=== PATIENT | male | born 1985 | race Caucasian/White ===

== ENCOUNTER 2018-10-31 21:23 | Emergency (ER) | payer SELFPAY ==
[~2018-10-31] VITALS: Ht 170.2 cm; Wt 94.3 kg
[2018-10-31 22:20] VITALS: BP 153/93
--- NOTE | 2018-10-31 22:26 | NUR ---
PT AMBULATED TO LOBBY WITH VSS.
--- NOTE | 2018-10-31 23:20 | NUR ---
PATIENT AMBULATED TO ER BED 6.
--- NOTE | 2018-10-31 23:32 | NUR ---
PT TO ED WITH C/O NOSE BLEED X TODAY, BLEEDING CONTROLLED WITH PRESSURE TO SITE. PT DENIES TRAUMA/INJURY. PT PLACED INTO BED, PENDING MD DC.
[2018-10-31 23:58] LABS: BARBITURATE, URINE NEG. ng/ml (NEG <=200); BENZODIAZEPINE, URINE NEG. ng/mL (NEG <=200); CANNABINOID, URINE NEG. ng/mL (NEG <=50); COCAINE, URINE NEG. ng/mL (NEG <=300); OPIATE, URINE NEG. ng/mL (NEG <=2000); PHENCYCLIDINE SCREEN,URINE NEG. ng/mL (NEG <=25)
[2018-11-01 00:11] VITALS: BP 153/93
--- NOTE | 2018-11-01 00:11 | NUR ---
Patient discharged with v/s stable. Written and verbal after care instructions given and explained. Patient alert, oriented and verbalized understanding of instructions. Ambulatory with steady gait. All questions addressed prior to discharge. ID band removed. Patient advised to follow up with PMD. Rx of NASAL SPRAY, PROMETHAZINE given. Patient educated on indication of medication including possible reaction and side effects. Opportunity to ask questions provided and answered.
== END 2018-11-01 00:11 | disposition home or self-care (01) ==
LOC: MED 21:23
DX: R04.0 Epistaxis (principal)
CPT/HCPCS: 80305; 87086; 99283